=== PATIENT | male | born 1990 | race Caucasian/White ===

== ENCOUNTER 2025-06-11 10:27 | Emergency (ER) | payer MEDICAID ==
[~2025-06-11] VITALS: Ht 175.3 cm; Wt 75.0 kg
[2025-06-11 10:34] VITALS: O2SAT 98
[2025-06-11 10:36] VITALS: BP 150/102; PULSE 80; RESP 18; TEMP 36.8; O2SAT 99
== END 2025-06-11 14:40 | disposition left against medical advice (07) ==
LOC: ER 10:27
DX: M25.531 Pain in right wrist (principal); Z53.21 Procedure and treatment not carried out due to patient leaving prior to being seen by health care provider
CPT/HCPCS: 99281